=== PATIENT | female | born 1955 | race African-American/Black ===

== ENCOUNTER 2018-04-19 17:29 | Emergency (ER) | payer OTHER ==
[~2018-04-19] VITALS: Ht 165.1 cm; Wt 90.7 kg
[2018-04-19] MEDS ORDERED: COZAAR50 MG (18:00)
== END 2018-04-19 20:45 | disposition home or self-care (01) ==
LOC: ER 17:29
DX: K21.9 Gastro-esophageal reflux disease without esophagitis (principal); R07.0 Pain in throat; M54.2 Cervicalgia

== ENCOUNTER 2018-05-27 04:52 | Emergency (ER) | payer OTHER ==
[~2018-05-27] VITALS: Ht 165.1 cm; Wt 90.7 kg
[~2018-05-27 04:52] MED LIST: COZAAR50 MG
[2018-05-27] MEDS ORDERED: ULTRACET PO (13:26)
== END 2018-05-27 13:53 | disposition home or self-care (01) ==
LOC: ER 04:52
DX: K57.92 Diverticulitis of intestine, part unspecified, without perforation or abscess without bleeding (principal)

== ENCOUNTER 2022-02-26 08:40 | Outpatient (CLI) | payer OTHER ==
[~2022-02-26 08:40] MED LIST changes: +ULTRACET PO
== END 2022-02-26 09:58 | disposition home or self-care (01) ==
LOC: TOM 08:40
DX: R19.5 Other fecal abnormalities (principal)